=== PATIENT | male | born 1930 | race Caucasian/White ===

== ENCOUNTER → 2017-04-12 | Outpatient (CLI) | payer OTHER ==
[~2017-04-12] MED LIST: ACYC200 PO; ASPI81CH; ASPI81EC PO; CHOL10002; CLOP75 PO; Co Q-10100 MG PO; DEXA4 PO; ERGO50000 PO; FINA5 PO; Hair, Skin & N1 EACH PO; LISI5 PO; NITR100 PO; NITR100CA PO; OMEP20ER PO; Omeprazole20 M1 PO; Revlimid10 MG PO; SLOW MAG PO; TAMS.4ER PO; UBID100 PO; VITAMIN D34000 UNIT PO; Velcade3.5 MG SC
== END | disposition home or self-care (01) ==
LOC: PLD 13:55 → LAB SHORT 13:55
DX: C44.42 Squamous cell carcinoma of skin of scalp and neck (principal); L57.8 Other skin changes due to chronic exposure to nonionizing radiation
CPT/HCPCS: 88305

== ENCOUNTER → 2017-05-04 | Outpatient (CLI) | payer OTHER | END | disposition home or self-care (01) | LOC: LAB SHORT 13:52 → PLD 13:52 | DX: C44.42 Squamous cell carcinoma of skin of scalp and neck (principal) | CPT/HCPCS: 88305 ==

== ENCOUNTER 2017-06-12 14:17 | Emergency (ER) | payer OTHER ==
[~2017-06-12] VITALS: Ht 175.3 cm; Wt 70.3 kg
[~2017-06-12 14:17] MED LIST changes: -Revlimid10 MG PO
[2017-06-12] MEDS ORDERED: Revlimid10 MG PO (14:47)
== END 2017-06-12 16:43 | disposition home or self-care (01) ==
LOC: ER 14:17
DX: M79.601 Pain in right arm (principal); M25.511 Pain in right shoulder; I48.91 Unspecified atrial fibrillation; Z79.899 Other long term (current) drug therapy; Z79.82 Long term (current) use of aspirin
CPT/HCPCS: 73030; 93005; 93010; 93971; 99284